=== PATIENT | female | born 2000 | race African-American/Black ===

== ENCOUNTER → 2022-12-26 | Emergency (ER) | payer BC ==
[~2022-12-26] VITALS: Ht 157.5 cm; Wt 44.5 kg
[2022-12-26 07:10] VITALS: BP 104/69; TEMP 98.4; O2SAT 100
== END | disposition home or self-care (01) ==
LOC: ER 06:57
DX: S09.90XA Unspecified injury of head, initial encounter (principal); Z60.2 Problems related to living alone; W20.8XXA Other cause of strike by thrown, projected or falling object, initial encounter; Y93.89 Activity, other specified; Y92.89 Other specified places as the place of occurrence of the external cause; Y99.8 Other external cause status